=== PATIENT | female | born 1965 | race Caucasian/White ===

== ENCOUNTER 2021-10-03 20:46 | Observation (INO) ==
[2021-10-03] MEDS ORDERED: 0.9 % Sodium Chloride 1,000 ML IV ONE (21:28)
[2021-10-03] MEDS ORDERED: Ondansetron 4 MG/2 ML VIAL IVP ONE ×2 (21:28→22:34)
[2021-10-03] MEDS ORDERED: Morphine Sulfate 2 MG/ML SYRINGE IVP ONE (22:34)
[2021-10-03 22:51] LABS: Basophils % 0.2 %; Eosinophils # 0.1 K/mcL (0.0-0.6); Eosinophils % 0.7 %; Hematocrit 42.1 % (35.3-44.9); Hemoglobin 13.8 g/dL (11.5-15.4); Immature Granulocytes % 0.5 % (0-4); Lymphocytes # 0.3 K/mcL (0.6-4.6); Mean Corpuscular HGB Conc 32.8 g/dL (31.6-35.5); Mean Corpuscular Hemoglobin 29.9 pg (28.0-33.3); Mean Corpuscular Volume 91.3 fL (83.0-100.0); Mean Platelet Volume 10.6 fL (9.4-12.4); Monocytes # 0.3 K/mcL (0.0-1.3); Monocytes % 4.2 %; Neutrophils # 7.3 K/mcL (1.6-8.9); Platelet Count 223 K/mcL (140-400); Red Blood Count 4.61 M/mcL (3.82-4.97); Red Cell Distribution Width 13.4 % (11.5-14.5); Segmented Neutrophils % 90.4 %
[2021-10-03 22:55] LABS: Bilirubin,Urine Negative (Negative); Blood,Urine Negative (Negative); Clarity,Urine Clear (Clear); Color,Urine Light-Yellow (Yellow); Glucose,Urine (UA) 30 mg/dL (Normal); Ketones,Urine 40 mg/dL (Negative); Leukocyte Esterase,Urine Trace (Negative); Mucus,Urine Few per lpf (None-Few); Nitrite,Urine Negative (Negative); PH,Urine 5.5 pH Units (5.0-8.0); Protein,Urine Trace mg/dL (Neg-Trace); RBC,Urine 0-3 per hpf (0-3); Specific Gravity,Urine 1.026 (1.010-1.025); Squamous Epithelial Cell,Urine Few per hpf (None-Few); Urobilinogen,Urine Normal (Normal); WBC,Urine 0-3 per hpf (0-3)
[2021-10-03 23:10] LABS: Alanine Aminotransferase 10 Units/L (7-52); Albumin 3.9 g/dL (3.5-5.7); Albumin/Globulin Ratio 1.4 (1.1-2.2); Alkaline Phosphatase 64 Units/L (34-104); Amylase 40 Units/L (29-103); Aspartate Amino Transferase 13 Units/L (13-39); BUN/Creatinine Ratio 31 (6-26); Bilirubin,Total 0.5 mg/dL (0.3-1.0); Blood Urea Nitrogen 30 mg/dL (6-20); Calcium 8.7 mg/dL (8.6-10.3); Carbon Dioxide 25 mEq/L (23-29); Chloride 104 mEq/L (98-107); Globulin 2.8 g/dL (2.4-3.5); Glucose 187 mg/dL (70-105); Lipase 40 Units/L (11-82); Osmolality,Calculated 297 (280-300); Potassium 4.1 mEq/L (3.5-5.1); Sodium 138 mEq/L (136-145); Total Protein 6.7 g/dL (6.4-8.9); eGFR For African Americans > 60 (> 60); eGFR For Non-African Americans 60 (> 60)
[2021-10-03] MEDS ORDERED: GI Cocktail 40 ML EACH PO ONE (23:34)
[2021-10-04] MEDS ORDERED: Isovue-370 500 ML BOTTLE IVP ONE (00:57)
[2021-10-04 01:40] LABS: Troponin I < 0.03 ng/mL (< 0.04)
[2021-10-04 01:48] LABS: Troponin I < 0.03 ng/mL (< 0.04)
[2021-10-04] MEDS ORDERED: 0.9 % Sodium Chloride 1,000 ML IV ONE (03:14)
[2021-10-04 03:33] LABS: Magnesium 1.2 mg/dL (1.6-2.6)
[2021-10-04 03:46] LABS: Thyroid Stimulating Hormone 1.028 mcIU/mL (0.340-5.600)
[2021-10-04] MEDS ORDERED: *HR* Metoprolol 5 MG/5 ML VIAL IVP ONE ×2 (05:37→06:16)
[2021-10-04 05:55] LABS: Adenovirus Not Detected (Not Detect); Bordetella Pertussis Not Detected (Not Detect); Chlamydophila pneumoniae Not Detected (Not Detect); Coronavirus 229E Not Detected (Not Detect); Coronavirus HKU1 Not Detected (Not Detect); Coronavirus NL63 Not Detected (Not Detect); Coronavirus OC43 Not Detected (Not Detect); Human Metapneumovirus Not Detected (Not Detect); Human Rhinovirus/Enterovirus Not Detected (Not Detect); Influenza A Subtype 2009 H1 Not Detected (Not Detect); Influenza B Not Detected (Not Detect); Mycoplasma pneumoniae Not Detected (Not Detect); Parainfluenza Virus 1 Not Detected (Not Detect); Parainfluenza Virus 2 Not Detected (Not Detect); Parainfluenza Virus 3 Not Detected (Not Detect); Parainfluenza Virus 4 Not Detected (Not Detect); Respiratory Syncytial Virus Not Detected (Not Detect); SARS-CoV-2 Not Detected (Not Detect)
[2021-10-04] MEDS ORDERED: Naloxone 0.4 MG/ML INJ IVP PRN (05:55)
[2021-10-04] MEDS ORDERED: Ondansetron 4 MG/2 ML VIAL IVP PRN (05:55)
[2021-10-04] MEDS ORDERED: Dextrose Gel 15 GM/37.5 ML TUBE PO PRN ×2 (05:59)
[2021-10-04] MEDS ORDERED: D5% in Water 1,000 ML IVC PRN (05:59)
[2021-10-04] MEDS ORDERED: *HR* Dextrose 50 % in Water (Syg) 50 ML SYRINGE IVP PRN (05:59)
[2021-10-04] MEDS ORDERED: Acetaminophen 325 MG TABLET PO PRN (06:00)
[2021-10-04] MEDS: 0.9 % Sodium Chloride 1,000 ML IVC SCH ×2 (06:13→17:15)
[2021-10-04] MEDS: Insulin LISPRO 300 UNITS/3 ML VIAL SUBQ SCH ×3 (06:52→17:17)
[2021-10-04] MEDS: *HR* Heparin 5,000 UNIT/ML VIAL SQ SCH ×2 (12:55→19:41)
[2021-10-04] MEDS: Famotidine 20 MG/2 ML VIAL IVP SCH (17:15)
[2021-10-04] MEDS ORDERED: Insulin LISPRO 300 UNITS/3 ML VIAL SUBQ SCH (21:00)
[2021-10-05 02:30] LABS: INR 1.1; Prothrombin Time 12.5 Seconds (9.4-12.1)
[2021-10-05 02:33] LABS: Activated Partial Thrombo Time 25.7 Seconds (26.0-36.0)
[2021-10-05 02:38] LABS: BUN/Creatinine Ratio 16 (6-26); Blood Urea Nitrogen 13 mg/dL (6-20); Calcium 8.7 mg/dL (8.6-10.3); Carbon Dioxide 21 mEq/L (23-29); Chloride 110 mEq/L (98-107); Chol/HDL Ratio 2.3 (0-4.9); Cholesterol 130 mg/dL (< 200); Glucose 120 mg/dL (70-105); HDL Cholesterol 57 mg/dL (40-59); LDL Cholesterol,Calculated 54 mg/dL (< 100); Osmolality,Calculated 289 (280-300); Sodium 139 mEq/L (136-145); Triglycerides 95 mg/dL (< 150); eGFR For African Americans > 60 (> 60); eGFR For Non-African Americans > 60 (> 60)
[2021-10-05 02:56] LABS: Hematocrit 37.1 % (35.3-44.9); Mean Corpuscular HGB Conc 31.8 g/dL (31.6-35.5); Mean Corpuscular Hemoglobin 29.5 pg (28.0-33.3); Mean Corpuscular Volume 92.8 fL (83.0-100.0); Mean Platelet Volume 10.5 fL (9.4-12.4); Platelet Count 205 K/mcL (140-400); Red Cell Distribution Width 13.8 % (11.5-14.5); White Blood Count 4.2 K/mcL (4.3-11.1)
[2021-10-05 02:58] LABS: Hemoglobin 11.8 g/dL (11.5-15.4)
[2021-10-05] MEDS: 0.9 % Sodium Chloride 1,000 ML IVC SCH (03:50)
[2021-10-05 03:55] VITALS: TEMP 98.1
[2021-10-05 04:39] LABS: Estimated Average Glucose 171 mg/dl; Hemoglobin A1C 7.6 %
[2021-10-05] MEDS: *HR* Heparin 5,000 UNIT/ML VIAL SQ SCH (05:13)
[2021-10-05] MEDS: Famotidine 20 MG/2 ML VIAL IVP SCH ×2 (05:14→05:40)
[2021-10-05 07:31] VITALS: BP 144/67; PULSE 71; O2SAT 95
[2021-10-05] MEDS: Insulin LISPRO 300 UNITS/3 ML VIAL SUBQ SCH (08:29)
== END 2021-10-05 10:10 | disposition home or self-care (01) ==
LOC: 3NENU 20:46 → EMEROOARM 20:46 → SUATTDRO 10-04 04:33 → 3NENU 10-04 05:07
PROVIDERS: ADMIT Student in an Organized Health Care Education/Training Program; ATTEND Family Medicine